=== PATIENT | male | born 2000 | race Caucasian/White ===

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

== ENCOUNTER 2023-04-28 07:57 | Emergency (ER) | payer OTHER, SELFPAY ==
[~2023-04-28] VITALS: Ht 177.8 cm; Wt 127.3 kg
[2023-04-28 08:05] VITALS: TEMP 98.1
[2023-04-28] MEDS ORDERED: IBUP-1492 PO (11:13)
[2023-04-28 11:15] VITALS: BP 137/80; PULSE 75; RESP 18
[2023-04-28] MEDS ORDERED: IBUPROFEN 600 MG TABLET PO ONE (11:30)
== END 2023-04-28 11:28 | disposition home or self-care (01) ==
LOC: EMS 07:59
DX: M25.532 Pain in left wrist (principal)
CPT/HCPCS: 99284; 73110-TC; 73130-TC; Z7502; Z7610

== ENCOUNTER 2024-01-07 08:48 | Emergency (ER) | payer OTHER ==
[~2024-01-07] VITALS: Ht 177.8 cm; Wt 129.6 kg
[~2024-01-07 08:48] MED LIST: IBUP-1492 PO
[2024-01-07 08:52] VITALS: TEMP 98
[2024-01-07] MEDS: BACITRACIN 0.9 GM PACKET OINTMENT TP ONE (09:03)
[2024-01-07] MEDS: LIDOCAINE 1% 10 ML VIAL SQ ONE (09:03)
[2024-01-07] MEDS: PERTUSS(ACELL),DIPH,TET/PF 0.5 ML SYRINGE [ADULT] IM. ONE (09:04)
[2024-01-07] MEDS ORDERED: BACI28.410 TP (09:58)
[2024-01-07] MEDS ORDERED: ACET-66 PO (09:58)
[2024-01-07 10:00] VITALS: BP 134/72; PULSE 75; RESP 16; O2SAT 99
== END 2024-01-07 10:16 | disposition home or self-care (01) ==
LOC: EMS 08:48
DX: S61.011A Laceration without foreign body of right thumb without damage to nail, initial encounter (principal); W26.8XXA Contact with other sharp object(s), not elsewhere classified, initial encounter; Y93.89 Activity, other specified; Y92.89 Other specified places as the place of occurrence of the external cause; Y99.8 Other external cause status
CPT/HCPCS: 99283; 90715; 90471; 12001; J3490